=== PATIENT | male | born 1985 | race African-American/Black ===

== ENCOUNTER 2019-12-25 15:55 | Emergency (ER) | payer SELFPAY ==
[~2019-12-25] VITALS: Ht 175.3 cm; Wt 77.1 kg
--- OUTSIDE RECORDS SUMMARY | 2019-12-25 15:58 | XMS REPORT ---
Author Author [facility] t Organization [facility] Address Unknown Phone Unavailable Care Team Providers Care Mortgage Processing Manager Name Role Phone Unavailable Unavailable Payers Payer Name Policy Type Policy Number Effective Date Expiration D ate Problems This patient has no known problems. Allergies, Adverse Reactions, Alerts Allergy Name Allergy Type Status Severity Reaction(s) Onset Date Inacti ve Date Treating Clinician Comments No Known Allergies DA Active U 2016-02-29 00:00:00 Medications This patient has no known medications. Results Test Description Test Time Test Comments Text Results Atomic Results Result Comments DRUGS OF ABUSE SCREEN UR 2019-02-13 22:49:00 URN COCAINE (test code = COCAURN) NEGATIVE NEGATIVE URN CANNABINOIDS (test code = CANNABURN) NEGATIVE NEGATIV E URN AMPHETAMINE (test code = AMPHETURN) NEGATIVE NEGATIVE URN BARBITURATE (test code = BARBITURN) NEGATIVE NEGATIVE URN BENZODIAZEPINE (test code = BENZOURN) NEGATIVE NEGATI VE URN OPIATES (test code = OPIATURN) NEGATIVE NEGATIVE URN PHENCYCLIDINE (PCP) (test code = PHENCURN) NEGATIVE N EGATIVE [id number] 22:49:00* Test Item Value Reference Range Comments TROPONIN-I (test code = TROPI) <0.015 ng/mL 0.00-0.056 COMPREHENSIVE METABOLIC [id number] 22:26:00* Test Item Value Reference Range Comments SODIUM (test code = NA) 140 mmol/L 136-145 POTASSIUM (test code = K) 3.7 mmol/L 3.5-5.1 CHLORIDE (test code = CL) 105 mmol/L 101-109 CARBON DIOXIDE (test code = CO2) 26.4 mmol/L 21-32 ANION GAP (test code = GAP) 12 mmol/L 10-20 GLUCOSE (test code = GLU) 107 mg/dL 74-106 BLOOD UREA NITROGEN (test code = BUN) 14 mg/dL 3-21 CREATININE (test code = CREAT) 1.22 mg/dL 0.55-1.3 BUN/CREATININE RATIO (test code = BUN/CREA) 11.5 10-2 0 TOTAL PROTEIN (test code = PROT) 6.9 g/dL 6.5-8.4 ALBUMIN (test code = ALB) 3.5 g/dL 3.4-4.8 GLOBULIN (test code = GLOB) 3.4 G/DL 1-10 ALBUMIN/GLOBULIN RATIO (test code = A/G) 1.03 RATIO 0.75-1. 50 CALCIUM (test code = CA) 8.9 mg/dL 8.4-10.2 BILIRUBIN TOTAL (test code = BILT) 0.40 mg/dL 0.0-1.0 SGOT/AST (test code = AST) 18 U/L 6-32 SGPT/ALT (test code = ALT) 27 U/L 12-78 Note: Change in REFERENCE RANGE due to new reagent method. ALKALINE PHOSPHATASE TOTAL (test code = ALKP) 56 U/L 38 -126 [id number] 22:26:00* Test Item Value Reference Range Comments MAGNESIUM (test code = MAG) 2.1 mg/dL 1.6-2.3 CPK-MB [id number] 22:26:00* Test Item Value Reference Range Comments CREATINE KINASE (CK) (test code = CK) 400 U/L 39-308 CKMB (test code = CKMBT) 1.2 ng/mL 0.0-5.0 RELATIVE % INDEX (test code = REL%) 0.3 % URINALYSIS [id number] 22:13:00* Test Item Value Reference Range Comments UA COLOR (test code = COLU) YELLOW YELLOW UA APPEARANCE (test code = APPU) CLEAR CLEAR UA GLUCOSE DIPSTICK (test code = DGLUU) norm mg/dL NEGATIVE UA BILIRUBIN DIPSTICK (test code = BILU) NEGATIVE mg/dL NEGATIV E UA KETONE DIPSTICK (test code = KETU) 5 (Trace) mg/dL NEGATIVE UA SPECIFIC GRAVITY (test code = SGU) 1.025 1.001-1.03 5 UA BLOOD DIPSTICK (test code = FLORES) 10 (Trace) Biju/uL NEGATIVE UA PH DIPSTICK (test code = BAILEY) 5.0 5.0-8.0 UA PROTEIN DIPSTICK (test code = PROU) 15 (TRACE) mg/dL Neg-15 UA UROBILINIOGEN DIPSTICK (test code = URO) norm mg/dL 0.0- 0.2 UA NITRITE DIPSTICK (test code = SETH) NEGATIVE NEGATIVE UA LEUKOCYTE ESTERASE DIPSTICK (test code = LEUU) 25 Edinson/uL (Tra ce) uL NEGATIVE UA WBC (test code = WBCU) 0-5 per HPF 0-5 UA RBC (test code = RBCU) 0-3 per HPF 0-5 UA EPITHELIAL CELLS (test code = EPIU) Rare (0-1/hpf) per HPF Fe w UA BACTERIA (test code = BACU) FEW per HPF NONE UA MUCUS (test code = MUCU) MODERATE per LPF NONE-FEW Urine Source? Clean [id number] 22:11:00* Test Item Value Reference Range Comments D-DIMER (test code = DDIMER) < 100 ng/ml < 600 URINALYSIS [id number] 22:07:00* Test Item Value Reference Range Comments UA COLOR (test code = COLU) YELLOW YELLOW UA APPEARANCE (test code = APPU) CLEAR CLEAR UA GLUCOSE DIPSTICK (test code = DGLUU) norm mg/dL NEGATIVE UA BILIRUBIN DIPSTICK (test code = BILU) NEGATIVE mg/dL NEGATIV E UA KETONE DIPSTICK (test code = KETU) 5 (Trace) mg/dL NEGATIVE UA SPECIFIC GRAVITY (test code = SGU) 1.025 1.001-1.03 5 UA BLOOD DIPSTICK (test code = FLORES) 10 (Trace) Biju/uL NEGATIVE UA PH DIPSTICK (test code = BAILEY) 5.0 5.0-8.0 UA PROTEIN DIPSTICK (test code = PROU) 15 (TRACE) mg/dL Neg-15 UA UROBILINIOGEN DIPSTICK (test code = URO) norm mg/dL 0.0- 0.2 UA NITRITE DIPSTICK (test code = SETH) NEGATIVE NEGATIVE UA LEUKOCYTE ESTERASE DIPSTICK (test code = LEUU) 25 Edinson/uL (Tra ce) uL NEGATIVE UA WBC (test code = WBCU) per HPF 0-5 UA RBC (test code = RBCU) per HPF 0-5 UA EPITHELIAL CELLS (test code = EPIU) per HPF Few UA BACTERIA (test code = BACU) per HPF NONE Urine Source? Clean CatchCOMPREHENSIVE METABOLIC [id number] 22:03:00* Test Item Value Reference Range Comments SODIUM (test code = NA) 140 mmol/L 136-145 POTASSIUM (test code = K) 3.7 mmol/L 3.5-5.1 CHLORIDE (test code = CL) 105 mmol/L 101-109 CARBON DIOXIDE (test code = CO2) 26.4 mmol/L 21-32 ANION GAP (test code = GAP) 12 mmol/L 10-20 GLUCOSE (test code = GLU) 107 mg/dL 74-106 BLOOD UREA NITROGEN (test code = BUN) 14 mg/dL 3-21 CREATININE (test code = CREAT) 1.22 mg/dL 0.55-1.3 BUN/CREATININE RATIO (test code = BUN/CREA) 11.5 10-2 0 TOTAL PROTEIN (test code = PROT) gram/dL 6.4-8.2 ALBUMIN (test code = ALB) g/dL 3.4-5.0 GLOBULIN (test code = GLOB) g/dL 2.7-4.2 ALBUMIN/GLOBULIN RATIO (test code = A/G) 0.75-1. 50 CALCIUM (test code = CA) 8.9 mg/dL 8.4-10.2 BILIRUBIN TOTAL (test code = BILT) mg/dL 0.2-1.2 SGOT/AST (test code = AST) IUnit/L 15-37 SGPT/ALT (test code = ALT) U/L 10-69 ALKALINE PHOSPHATASE TOTAL (test code = ALKP) IUnit/L 45 -117 [id number] 22:03:00* Test Item Value Reference Range Comments MAGNESIUM (test code = MAG) mg/dL 1.8-2.4 CPK-MB [id number] 22:03:00* Test Item Value Reference Range Comments CREATINE KINASE (CK) (test code = CK) IUnit/L 26-208 CKMB (test code = CKMBT) ng/mL 0-6.0 RELATIVE % INDEX (test code = REL%) % CBC W/AUTO [id number] 21:54:00* Test Item Value Reference Range Comments WHITE BLOOD CELL (test code = WBC) 6.3 K/mm3 4.5-12.5 RED BLOOD CELL (test code = RBC) 5.23 mill/mm3 4.0-5.8 HEMOGLOBIN (test code = HGB) 14.2 gram/dL 13.0-17.5 HEMATOCRIT (test code = HCT) 42.0 % 42.0-52.0 MEAN CELL VOLUME (test code = MCV) 80.3 fL 80-98 MEAN CELL HGB (test code = MCH) 27.2 picogram 27.0-33.0 MEAN CELL HGB CONCETRATION (test code = MCHC) 33.8 gram/dL 33 .0-36.0 RED CELL DISTRIBUTION WIDTH (test code = RDW) 12.4 % 11 .6-16.2 RED CELL DISTRIBUTION WIDTH SD (test code = RDW-SD) 36.7 fL 37.0-51.0 PLATELET COUNT (test code = PLT) 202 K/mm3 150-450 MEAN PLATELET VOLUME (test code = MPV) 10.0 fL 6.7-11.0 NEUTROPHIL % (test code = NT%) 51.8 % 39.0-69.0 LYMPHOCYTE % (test code = LY%) 39.7 % 25.0-55.0 MONOCYTE % (test code = MO%) 5.2 % 0.0-10.0 EOSINOPHIL % (test code = EO%) 2.8 % 0.0-5.0 BASOPHIL % (test code = BA%) 0.3 % 0.0-1.0 NEUTROPHIL # (test code = NT#) 3.28 K/mm3 1.8-7.7 LYMPHOCYTE # (test code = LY#) 2.52 K/mm3 1.0-5.0 MONOCYTE # (test code = MO#) 0.33 K/mm3 0-0.8 EOSINOPHIL # (test code = EO#) 0.18 K/mm3 0.0-0.5 BASOPHIL # (test code = BA#) 0.02 K/mm3 0.0-0.2 MANUAL DIFF REQUIRED (test code = MDIFF) NO - XR CHEST 1 [id number] 21:49:00 Name: MARIELLE SAMUEL [facility] : 1985 Age/S:33 /M [address] [facility] Unit#:[id number] Loc: [place] [address] Phys: Beth Long MD Dis Date: PHONE #: [phone] Status: REG ER FAX #: [phone] Exam Date: 02/13/2019 Reason: cp EXAMS: CPT CODE: [id number] XR CHEST 1 V [id number] REASON FOR EXAM: cp EXAM ORDER DATE: 02/13/2019 9:26 PM Ordering M.Cristo: Beth Long MD PROCEDURE: - XR CHEST 1 V COMPARISON: FINDINGS: Portable AP frontal view of the chest obtained at 9:34 PM shows clear lungs without evidence of consolidation. There is no evidence of effusion. The heart size is within normal limits. Pulmonary vasculatures are unremarkable. IMPRESSION: No active disease. at 2148 Reported and signed by: George López M.D. CC: Beth Espinoza MD Technologist: MICHAELLE WISE RT(R),CT Trnscrpt Data: 02/13/2019 (2148) tDAMIEN RICHARDSON Orig Print D/T: S: 02/13/2019 (2171) PAGE 1 Signed Report
--- NOTE | 2019-12-25 19:15 | NUR ---
[facility] NOTIFIED AF THRANSFER TO [facility] ROOM 290
== END 2019-12-25 18:15 | disposition home or self-care (01) ==
LOC: FSED 15:55
DX: M77.8 Other enthesopathies, not elsewhere classified (principal); X50.1XXA Overexertion from prolonged static or awkward postures, initial encounter; Y99.0 Civilian activity done for income or pay
CPT/HCPCS: 99282